=== PATIENT | female | born 1965 | race Caucasian/White ===

== ENCOUNTER 2020-09-24 12:30 | Emergency (ER) | payer OTHER ==
[2020-09-24] MEDS ORDERED: CYCLOBENZAPRINE10 MG PO (16:02)
[2020-09-24] MEDS ORDERED: MEDROL 4MG DOSEP4 MG PO (16:02)
== END 2020-09-24 17:05 | disposition home or self-care (01) ==
LOC: FER 12:30
DX: S80.02XA Contusion of left knee, initial encounter (principal); S40.011A Contusion of right shoulder, initial encounter; S50.01XA Contusion of right elbow, initial encounter; I10 Essential (primary) hypertension; W01.0XXA Fall on same level from slipping, tripping and stumbling without subsequent striking against object, initial encounter; Y92.89 Other specified places as the place of occurrence of the external cause; Y99.0 Civilian activity done for income or pay
CPT/HCPCS: 71101; 73030; 73080; 73564; 96372; J1100; J1885